=== PATIENT | female | born 1980 | race Caucasian/White ===

== ENCOUNTER → 2020-10-31 15:47 | Outpatient (BNVA) | payer BC, SELFPAY | PROVIDERS: Family Provider Nurse Practitioner Family; PCP Nurse Practitioner Family; Visit Provider Nurse Practitioner Family | DX: R68.89 Other general symptoms and signs (principal); R11.0 Nausea | CPT/HCPCS: 81000; 87635 ==

== ENCOUNTER 2020-11-03 19:31 | Emergency (ER) | payer BC, SELFPAY ==
--- NOTE | 2020-11-03 19:37 | XRR_ITS ---
PROCEDURE INFORMATION: Exam: XR Chest Exam date and time: 11/03/2020 7:37 PM Age: 40 years old Clinical indication: Cough and shortness of breath; Patient HX: Covid +; Additional info: SOB TECHNIQUE: Imaging protocol: XR of the chest. Views: 1 view. COMPARISON: CR Chest 2 views* [id number] 01/31/2015 10:45 AM FINDINGS: Lungs: Multifocal patchy airspace disease in both lungs. Peripheral orientation of much of the opacification. Decreased lung volumes. Pleural spaces: Unremarkable. No pleural effusion. No pneumothorax. Heart/Mediastinum: Unremarkable. No cardiomegaly. Bones/joints: Unremarkable. XR/XR chest 1V portable [id number] IMPRESSION: Multifocal atypical pneumonia apparent consistent with COVID-19 pneumonia.
[2020-11-03 20:03] VITALS: BP 112/75; PULSE 129; RESP 18; TEMP 38.3; O2SAT 92; BMI 33.6
[2020-11-04] VITALS (7 sets, daily range): BP systolic 115–123; BP diastolic 77–96; PULSE 103–115; RESP 18–29; O2SAT 85–95
--- NOTE | 2020-11-04 00:08 | W.ED.COVID ---
HPI - COVID General: Chief Complaint: COVID symptoms Stated Complaint: COVID+:SOB (LAST O2 WAS 89%), COUGH Time Seen by Provider: 11/04/20 00:05 Triage information: Has fever, cough or shortness of breath. Exposure to COVID + person last 14 days History of Present Illness: HPI Narrative: Patient comes in today for complaints shortness of breath and low oxygen level at home. Patient reports that he got down to the eighties and her and primary care provider recommended she come to the ER. Patient reports poor oral intake. Patient appears unwell but not toxic. COVID 19 common symptoms: positive dyspnea COVID Results: Nasal/Oral Coronavirus 2019 PCR Detected H 10/31/20 15:47 10/31/20 Review of Systems General: Reports: 10 or more systems reviewed and unremarkable except in HPI and below Resp: Reports: dyspnea PFSH ED PFSH: Social History Smoking and tobacco status: former smoker Alcohol intake: never Female Reproductive History: Date of last menstrual period: 12/14/19 Physical Exam Const: COMMON NORMALS: no acute distress and patient oriented x3 GENERAL APPEARANCE: cooperative HENMT: COMMON NORMALS: normocephalic and Normal external nose present HEAD & SCALP: normal to inspection and normocephalic NOSE: Normal external nose present MOUTH: Normal oral and palatal mucosa present Eye: GENERAL EYE: appearance normal, both eyes and all related structures Neck/C-Spine: COMMON NORMALS: full ROM Chest: COMMONS NORMALS: normal inspection of the chest Resp: COMMON NORMALS: normal respiratory effort EFFORT & INSPECTION: Yes able to speak in complete sentences AUSCULTATION: diminished lung sounds Cardio: COMMON NORMALS: regular rate and regular rhythm RATE: regular rate RHYTHM: regular rhythm GI: COMMON NORMALS: non-tender Back/Pelvis: COMMON NORMALS: thoracic and lumbar spine normal to inspection Extremity: COMMON NORMALS: normal to inspection Neuro: COMMON NORMALS: patient oriented x3 and moves all extremities Psych: COMMON NORMALS: mental status grossly normal and cooperative Skin: COMMON NORMALS: no rashes or lesions noted GENERAL SKIN EXAM: no rashes or lesions noted Course Vital Signs: Vital signs: Vital Signs Temperature 100.9 F H 11/03/20 20:03 Pulse Rate 112 H 11/04/20 00:41 Respiratory Rate 29 H 11/04/20 00:41 Blood Pressure 122/85 11/04/20 00:41 Pulse Oximetry 94 11/04/20 00:41 MDM - COVID MDM Narrative: Medical decision making narrative: 40-year-old female comes in today with malaise. Patient reports that she has had some low oxygen levels at home. On exam patient has decreased breath sounds in the lung [place] especially at the bases. Abdomen was soft nontender. Skin was warm and dry. Vital signs were normal except for mild hypoxia 88% on room air. Differential diagnosis includes COVID-19, pneumonia, respiratory failure. Chest x-ray noted pneumonia. Laboratory values were normal except for some elevation in fibrinogen and CRP. Patient was treated with dexamethasone and albuterol. Patient was also hydrated with 1 L of IV fluid. Reviewed exam with patient recommended home oxygen therapy and encourage plenty of fluids. Patient was encouraged to stay well-hydrated and use acetaminophen and ibuprofen for pain and fever. Patient reported understanding. Patient was recommended to follow-up or return to the ER for worsening symptoms. Lab Data: Labs: Lab Results 11/04/20 11/04/20 11/04/20 Range/Units 00:30 00:30 00:30 WBC 6.7 (4.0-10.0) 10^3/ uL RBC 4.81 (4.1-5.3) 10^6/u L Hgb 14.0 (11.5-15.3) g/dL Hct 42.1 (37.0-47.0) % MCV 87.5 (81-99) fL MCH 29.1 (28.0-34.0) pg MCHC 33.3 (30.0-36.0) g/dL RDW 12.9 (12.1-15.1) % Plt Count 250 (130-400) 10^3/c mm MPV 9.2 (7.4-10.4) fL Neut % (Auto) 67.2 % Lymph % (Auto) 24.1 % [place] % (Auto) 7.6 % Eos % (Auto) 0.0 % Baso % (Auto) 0.1 % Neut # (Auto) 4.52 (1.8-7.7) 10^3/u L Lymph # (Auto) 1.6 (0.8-4.8) 10^3/u L [place] # (Auto) 0.5 (0.2-0.9) 10^3/u L Eos # (Auto) 0.0 (0.0-0.8) 10^3/u L Baso # (Auto) 0.0 (0.0-0.1) 10^3/u L Nucleated RBC % (a uto) 0 % Nucleated RBCs # 0.0 /100WBC Fibrinogen 634 H (174-498) mg/dL D-Dimer 0.55 (0-0.59) ug/mIFE U Sodium 140 (136-145) mmol/L Potassium 3.9 (3.5-5.1) mmol/L Chloride 101 (98-107) mmol/L Carbon Dioxide 25 (22-29) mmol/L Anion Gap 17.9 (5-19) BUN 12 (6-20) mg/dL Creatinine 0.7 (0.5-0.9) mg/dL GFR Calculation 93.2 (90-130) mL/min Glucose 119 H (65-115) mg/dL Calculated Osmolal ity 291 (285-295) mOsm/k g Lactic Acid (0.5-2.2) mmol/L Calcium 8.4 L (8.5-10.5) mg/dL Total Bilirubin 0.9 (0.15-1.2) mg/dL AST 20 (0-32) U/L ALT 19 (0-33) U/L Alkaline Phosphata se 59 (35-105) IU/L Creatine Kinase 142 (26-192) U/L Troponin T Gen 5 n g/L (0-10) ng/L C-Reactive Protein 98.5 H (0.0-4.9) mg/L NT-Pro-B Natriuret Pep 37 (0-125) pg/mL Total Protein 6.8 (6.6-8.7) g/dL Albumin 3.8 (3.5-5.2) g/dL Globulin 3.0 (1.3-4.6) g/dL Procalcitonin 0.05 (0-0.5) ng/mL 11/04/20 11/04/20 Range/Units 00:30 00:30 WBC (4.0-10.0) 10^3/ uL RBC (4.1-5.3) 10^6/u L Hgb (11.5-15.3) g/dL Hct (37.0-47.0) % MCV (81-99) fL MCH (28.0-34.0) pg MCHC (30.0-36.0) g/dL RDW (12.1-15.1) % Plt Count (130-400) 10^3/c mm MPV (7.4-10.4) fL Neut % (Auto) % Lymph % (Auto) % [place] % (Auto) % Eos % (Auto) % Baso % (Auto) % Neut # (Auto) (1.8-7.7) 10^3/u L Lymph # (Auto) (0.8-4.8) 10^3/u L [place] # (Auto) (0.2-0.9) 10^3/u L Eos # (Auto) (0.0-0.8) 10^3/u L Baso # (Auto) (0.0-0.1) 10^3/u L Nucleated RBC % (a uto) % Nucleated RBCs # /100WBC Fibrinogen (174-498) mg/dL D-Dimer (0-0.59) ug/mIFE U Sodium (136-145) mmol/L Potassium (3.5-5.1) mmol/L Chloride (98-107) mmol/L Carbon Dioxide (22-29) mmol/L Anion Gap (5-19) BUN (6-20) mg/dL Creatinine (0.5-0.9) mg/dL GFR Calculation (90-130) mL/min Glucose (65-115) mg/dL Calculated Osmolal ity (285-295) mOsm/k g Lactic Acid 1.2 (0.5-2.2) mmol/L Calcium (8.5-10.5) mg/dL Total Bilirubin (0.15-1.2) mg/dL AST (0-32) U/L ALT (0-33) U/L Alkaline Phosphata se (35-105) IU/L Creatine Kinase (26-192) U/L Troponin T Gen 5 n g/L 6 (0-10) ng/L C-Reactive Protein (0.0-4.9) mg/L NT-Pro-B Natriuret Pep (0-125) pg/mL Total Protein (6.6-8.7) g/dL Albumin (3.5-5.2) g/dL Globulin (1.3-4.6) g/dL Procalcitonin (0-0.5) ng/mL COVID Results: Nasal/Oral Coronavirus 2019 PCR Detected H 10/31/20 15:47 10/31/20 Discharge Plan Discharge Patient Disposition: Home Clinical Impression: Pneumonia due to COVID-19 virus Condition: Stable Prescriptions: New dexamethasone 6 mg tablet 6 mg PO DAILY Qty: 5 RF: 0 No Action promethazine 25 mg tablet 25 mg PO Q6H PRN (Reason: nausea and vomiting) Qty: 30 RF: 0 prednisone 20 mg tablet 60 mg PO DAILY 9 Days Qty: 18 RF: 0 pregabalin [Lyrica] 25 mg capsule 25 mg PO DAILY PRNRF: 0 ibuprofen 800 mg tablet 800 mg PO Q8H Qty: 90 RF: 0 cetirizine [24Hour Allergy] 10 mg tablet 10 mg PO DAILY PRNRF: 0 amoxicillin-pot clavulanate 875-125 mg tablet 1 tab PO BID 10 Days Qty: 20 RF: 0 dexamethasone 2 mg tablet 10 mg PO DAILY 1 Days Qty: 5 RF: 0 [id number] [Bromfed DM] 2-30-10 mg/5 mL syrup 7.5 ml PO Q6H PRN (Reason: cold symptoms) Qty: 160 RF: 0 ondansetron 4 mg tablet,disintegrating 4 mg PO Q6H PRN (Reason: nausea and vomiting) Qty: 12 RF: 0 Discharge Orders: Discharge ED (Routine); Ordered 11/04/20 Ordered By: Lon Leigh Referrals: Harrsion Tyler FNP [Primary Care Provider] - Discharge Diet: Usual diet Discharge Activity: Increase activity as tolerated Patient Instructions: Viral Pneumonia (ED), Opioid Safety Activity Restrictions/Additional Instructions: Take dexamethasone daily as directed. Use albuterol inhaler every 4 hours as needed for cough, wheezing, and shortness of breath, Continue home oxygen 2-4 lpm to maintain oxygen saturation above 90%. Return to ER for worsening symptoms or new concerns. Follow-up with primary care for further treatment. Coding Level of Care Code ED Line [employer]
[2020-11-04] MEDS: dexamethasone 4 mg/mL INJ 10 MG IVP (00:35)
[2020-11-04] MEDS: sodium chloride 0.9% 1,000 ML 999 ML IV (00:35)
[2020-11-04] MEDS: acetaminophen 325 mg Tablet 650 MG PO (00:35)
[2020-11-04 00:46] LABS: Basophils % 0.1 %; Hematocrit 42.1 % (37.0-47.0); Lymphocytes # 1.6 10^3/uL (0.8-4.8); Lymphocytes % 24.1 %; Mean Corpuscular HGB Conc 33.3 g/dL (30.0-36.0); Mean Corpuscular Hemoglobin 29.1 pg (28.0-34.0); Mean Corpuscular Volume 87.5 fL (81-99); Mean Platelet Volume 9.2 fL (7.4-10.4); Monocytes # 0.5 10^3/uL (0.2-0.9); Monocytes % 7.6 %; Neutrophils # 4.52 10^3/uL (1.8-7.7); Neutrophils % 67.2 %; Nucleated Red Blood Cells % 0 %; Platelet Count 250 10^3/cmm (130-400); Red Blood Count 4.81 10^6/uL (4.1-5.3); Red Cell Distribution Width 12.9 % (12.1-15.1); White Blood Count 6.7 10^3/uL (4.0-10.0)
[2020-11-04 00:50] LABS: Fibrinogen 634 mg/dL (174-498)
[2020-11-04 00:53] LABS: D Dimer 0.55 ug/mIFEU (0-0.59)
[2020-11-04 00:54] LABS: Lactic Sepsis W/Reflex 1.2 mmol/L (0.5-2.2)
[2020-11-04 00:56] LABS: Troponin T (5th) Once 6 ng/L (0-10)
[2020-11-04 01:05] LABS: NT Pro B Type Natriuretic Pept 37 pg/mL (0-125); Procalcitonin 0.05 ng/mL (0-0.5)
[2020-11-04 01:16] LABS: Creatine Phosphokinase 142 U/L (26-192); Slide Review Slide Review Perform
[2020-11-04 01:29] LABS: Alanine Aminotransferase 19 U/L (0-33); Albumin Level 3.8 g/dL (3.5-5.2); Alkaline Phosphatase 59 IU/L (35-105); Anion Gap 17.9 (5-19); Aspartate Amino Transferase 20 U/L (0-32); Blood Urea Nitrogen 12 mg/dL (6-20); C Reactive Protein 98.5 mg/L (0.0-4.9); Calcium 8.4 mg/dL (8.5-10.5); Carbon Dioxide 25 mmol/L (22-29); Chloride 101 mmol/L (98-107); Glomerular Filtration Rate 93.2 mL/min (90-130); Glucose 119 mg/dL (65-115); Osmolality Calculated 291 mOsm/kg (285-295); Potassium 3.9 mmol/L (3.5-5.1); Sodium 140 mmol/L (136-145); Total Bilirubin 0.9 mg/dL (0.15-1.2); Total Protein 6.8 g/dL (6.6-8.7)
[2020-11-04] MEDS: ketorolac 30 mg/mL INJ 15 MG IVP (01:55)
[2020-11-04 02:12] LABS: Ferritin 284 ng/mL (15-150)
[2020-11-04] MEDS: albuterol 8 gm MDI 2 PUFF INHALATION (02:35)
== END 2020-11-04 03:05 | disposition home or self-care (01) ==
PROVIDERS: Emergency Provider Nurse Practitioner Family; PCP Nurse Practitioner Family
DX: U07.1 COVID-19 (principal); J12.82 Pneumonia due to coronavirus disease 2019; Z87.891 Personal history of nicotine dependence
CPT/HCPCS: 71045; 80053; 82550; 82728; 83605; 83880; 84145; 84484; 85025; 85378; 85384; 86140; 87040; 94640; 96361; 96374; 96375; 99284; J1100; J1885; J3535; J7030

== ENCOUNTER → 2021-07-20 15:10 | Outpatient (BNVA) | payer BC, SELFPAY | PROVIDERS: PCP Nurse Practitioner Family; Visit Provider Emergency Medicine | DX: M54.50 Low back pain, unspecified (principal) | CPT/HCPCS: 72114 ==

== ENCOUNTER 2021-09-01 10:27 | Outpatient (CLI) | payer BC, SELFPAY ==
--- NOTE | 2021-09-01 11:00 | MR_ITS ---
WS: [id number] MRI LUMBAR SPINE NONCONTRAST TECHNIQUE: Sagittal T1, T2 and STIR imaging. Axial T1 and T2 imaging. CLINICAL INFORMATION: M54.42 - Lumbago with sciatica, left side COMPARISON: None. FINDINGS: Mild lumbar curve. No acute compression. No high-grade central canal stenosis. L1-L2: Normal. L2-L3: Normal. L3-L4: No significant disc bulging. Mild facet arthropathy. Spinal canal and foramen are patent. L4-L5: No significant disc bulging. Mild facet arthropathy. Spinal canal and foramen are patent. L5-S1: Mild disc bulging. Tiny LEFT pericentral protrusion. Slight contact of the traversing LEFT S1 nerve root. Spinal canal and foramen are patent. Mild facet arthropathy. Small central protrusion seen on the cervical spine [employer] imaging at C6-C7 with mild central canal st enosis and slight contact of the cervical cord. This can be further evaluated with cervical spine MRI . Visualized pelvic bony structures: Normal. Paravertebral soft tissues: Normal. MR/MR lumbar spine wo con* [id number] IMPRESSION: 1. Mild lumbar curve. No acute compression. No high-grade central canal stenos is. 2. Mild disc bulging L5-S1 with a tiny shallow LEFT pericentral protrusion. Sl ight contact LEFT S1 nerve root. Recommend correlation LEFT S1 nerve root sympt oms. 3. Otherwise no significant spinal canal or foraminal narrowing. 4. Mild facet arthropathy L3-L5. 5. Small central protrusion seen on the cervical spine [employer] imaging at C6-C7 with slight contact of the cervical cord and mild central canal stenosis. This can be further evaluated with cervical spine MRI.
== END 2021-09-01 10:28 | disposition home or self-care (01) ==
PROVIDERS: PCP Nurse Practitioner Family; Visit Provider Emergency Medicine
DX: M54.42 Lumbago with sciatica, left side (principal); G89.29 Other chronic pain; M51.17 Intervertebral disc disorders with radiculopathy, lumbosacral region; M47.816 Spondylosis without myelopathy or radiculopathy, lumbar region
CPT/HCPCS: 72148